=== PATIENT | female | born 1955 | race Caucasian/White ===

== ENCOUNTER 2016-10-14 08:54 | Day surgery (SDC) | payer BC ==
[~2016-10-14] VITALS: Ht 170.2 cm; Wt 78.9 kg
[~2016-10-14 08:54] MED LIST: ANTIVERT PO; BACTRIM DS1 TAB PO; BENADRYL 50MG C50 MG PO; BIOTIN MAXI10000 MCG PO; CIPROFLOXACN500 MG PO; CYCLOBENZAPR10 MG PO; CYMBALTA20 MG PO; CYMBALTA30 MG PO; CYMBALTA60 MG PO; DARVOCET N-100100 - OR; DICLOFENAC SODI50 M1 PO; DICLOFENAC50 MG PO; DICLOFENAC75 MG PO; DONEPEZIL5 MG PO; FISH OIL1000 MG PO; FLEXERIL OR; FLEXERIL PO; GRALISE300 MG PO; KEFLEX500 MG OR; LORTAB 10 PO; LORTAB 5 OR; LORTAB5 PO; MEDDOSEPAK PO; NAMENDA10 MG PO; NEURONTIN300 MG OR; NEURONTIN300 MG PO; NITROGLYCER0.4 MG SL; NITROSTAT0.4 MG SL; NORCO1 TA1 PO; PEPCID20 MG PO; PERCOCET 5/325M1 TAB OR; PRAVASTATIN SOD20 MG PO; PREMARIN0.3 MG PO; PREZISTA800 MG; PRILOSEC40 MG PO; PROVENTIL HFA IN; RYBIX ODT50 MG PO; SELENIUM200 MC1 PO; TRAMADOL HCL50 MG PO; TRAZODONE HCL100 MG PO; TRAZODONE50 MG PO; ULTRAM50 M1 PO; ULTRAM50 MG PO; XANAX XR0.5 MG PO; XANAX0.25 MG PO; XANAX0.5 MG PO; ZOFRAN ODT4 MG PO; [UNRECOGNIZED DRUG - OTHER]; [UNRECOGNIZED DRUG - OTHER] IM
[2016-10-14 11:29] VITALS: BP 110/65
[2016-10-15] MEDS ORDERED: XANAX0.5 MG PO (12:22)
== END 2016-10-14 11:40 | disposition home or self-care (01) | DRG 951 ==
LOC: ENDO 08:54
PROVIDERS: ATTEND Internal Medicine Gastroenterology
PROC: 0DBP8ZX Excision of Rectum, Via Natural or Artificial Opening Endoscopic, Diagnostic (ICD-10-PCS; principal; 2016-10-14)
PROC: 0DBN8ZX Excision of Sigmoid Colon, Via Natural or Artificial Opening Endoscopic, Diagnostic (ICD-10-PCS; 2016-10-14)
DX: Z12.11 Encounter for screening for malignant neoplasm of colon (principal); K76.0 Fatty (change of) liver, not elsewhere classified; G62.9 Polyneuropathy, unspecified; K64.4 Residual hemorrhoidal skin tags; K57.30 Diverticulosis of large intestine without perforation or abscess without bleeding; K63.5 Polyp of colon; K62.1 Rectal polyp; R11.2 Nausea with vomiting, unspecified; F41.9 Anxiety disorder, unspecified; B19.20 Unspecified viral hepatitis C without hepatic coma; Z86.010 Personal history of colon polyps

== ENCOUNTER 2016-10-15 11:34 | Emergency (ER) | payer BC ==
[~2016-10-15] VITALS: Ht 170.2 cm; Wt 79.1 kg
[2016-10-15] MEDS ORDERED: XANAX0.5 MG PO (12:22)
[2016-10-15 12:35] LABS: HEMATOCRIT 40.5 % (37.0-47.0); IMMATURE GRANULOCYTES 0.2 % (0.0-1.0); MEAN CORPUSCULAR HGB 28.6 pG CALC (26.0-32.0); MEAN CORPUSCULAR HGB CONC 32.1 g/L CALC (32.0-36.0); NEUT# 3.81 thou/uL (2.00-7.15); RED BLOOD COUNT 4.55 mill/uL (4.20-5.60); RED CELL DISTRI WIDTH 12.9 % (11.5-15.5)
[2016-10-15 12:40] LABS: ALBUMIN 4.8 g/dL (3.2-5.0); ALKALINE PHOSPHATASE 66 u/l (38-126); ANION GAP 17 (6-22 (CALC)); BILIRUBIN, TOTAL 0.7 mg/dL (0.0-1.4); BUN 15 mg/dL (7-17); BUN/CREATININE RATIO 17 (12-20 (CALC)); CALCIUM 9.9 mg/dL (8.4-10.2); CARBON DIOXIDE 27 mmol/l (22-30); CHLORIDE 105 mmol/l (95-108); CREATININE 0.9 mg/dL (0.5-1.0); GFR > 60 ML/MIN (>=60 (CALC)); GFR FOR AFR.AMER. > 60 ML/MIN (>=60 (CALC)); GLUCOSE 100 mg/dL (65-105); POTASSIUM 4.2 mmol/l (3.5-5.1); PROTHROMBIN TIME 11.1 SECONDS (9.0-12.5); SGOT/AST 31 u/l (14-36); SGPT/ALT 48 u/l (9-52); SODIUM 144 mmol/l (137-146); TOTAL PROTEIN 8.4 g/dL (6.3-8.2)
[2016-10-15 14:26] VITALS: BP 117/72
== END 2016-10-15 14:27 | DRG 379 ==
LOC: ED 11:34
PROVIDERS: Emergency Medicine
DX: K92.2 Gastrointestinal hemorrhage, unspecified (principal); R11.0 Nausea; R10.31 Right lower quadrant pain; R10.32 Left lower quadrant pain; Z98.890 Other specified postprocedural states
CPT/HCPCS: Q9967

== ENCOUNTER 2017-03-10 17:10 | Observation (INO) | payer BC, OTHER ==
[~2017-03-10] VITALS: Ht 170.2 cm; Wt 77.0 kg
[2017-03-10 18:14] LABS: HEMATOCRIT 39.2 % (37.0-47.0); HEMOGLOBIN 12.4 g/dl (12.0-16.0); IMMATURE GRANULOCYTES 0.2 % (0.0-1.0); MEAN CELL VOLUME 86.7 fL CALC (80.0-100.0); MEAN CORPUSCULAR HGB 27.4 pG CALC (26.0-32.0); MEAN CORPUSCULAR HGB CONC 31.6 g/L CALC (32.0-36.0); NEUT# 2.51 thou/uL (2.00-7.15); RED BLOOD COUNT 4.52 mill/uL (4.20-5.60)
[2017-03-10] MEDS ORDERED: NAMENDA10 MG PO (18:25)
[2017-03-10 18:27] LABS: ANION GAP 16 (6-22 (CALC)); BUN 11 mg/dL (7-17); BUN/CREATININE RATIO 14 (12-20 (CALC)); CALCIUM 10.2 mg/dL (8.4-10.2); CARBON DIOXIDE 29 mmol/l (22-30); CHLORIDE 105 mmol/l (95-108); CREATININE 0.7 mg/dL (0.5-1.0); GFR > 60 ML/MIN (>=60 (CALC)); GFR FOR AFR.AMER. > 60 ML/MIN (>=60 (CALC)); GLUCOSE 82 mg/dL (65-105); POTASSIUM 4.2 mmol/l (3.5-5.1); SODIUM 146 mmol/l (137-146)
[2017-03-10 18:46] LABS: INFLUENZA A NONE DETECTED (NONE DETECT); INFLUENZA B NONE DETECTED (NONE DETECT)
[2017-03-10 19:29] LABS: URINE BILIRUBIN - DIPSTICK NEGATIVE (NEGATIVE); URINE BLOOD DIPSTICK NEGATIVE (NEGATIVE); URINE COLOR YELLOW; URINE GLUCOSE - DIPSTICK NEGATIVE (NEGATIVE); URINE KETONE NEGATIVE (NEGATIVE); URINE LEUK ESTERASE TRACE (NEGATIVE); URINE NITRITE - DIPSTICK NEGATIVE (Negative); URINE PH 6.5 (4.5-8.0); URINE PROTEIN - DIPSTICK NEGATIVE (NEG-TRACE); URINE UROBILINOGEN - DIPSTICK 0.2 E.U./dL (0.2)
[2017-03-10 20:21] LABS: URINE CLARITY CLEAR
[2017-03-10 20:50] VITALS: BP 135/76
[2017-03-10 23:22] VITALS: BP 132/85
[2017-03-11 03:00] VITALS: BP 114/61
[2017-03-11 08:15] VITALS: BP 141/91
[2017-03-11 13:28] VITALS: BP 137/75
[2017-03-11 13:30] VITALS: BP 133/33; BP 137/75; BP 143/81
== END 2017-03-11 14:32 | disposition home or self-care (01) | DRG 312 ==
LOC: ED 17:10 → ED-I 18:37 → ED 18:55 → MS2 18:56
PROVIDERS: Family Medicine; ADMIT Internal Medicine; ATTEND Internal Medicine
DX: R55 Syncope and collapse (principal); I10 Essential (primary) hypertension; G62.9 Polyneuropathy, unspecified; M79.7 Fibromyalgia; M06.9 Rheumatoid arthritis, unspecified; G31.84 Mild cognitive impairment of uncertain or unknown etiology; K52.9 Noninfective gastroenteritis and colitis, unspecified; R10.9 Unspecified abdominal pain; G89.29 Other chronic pain; F41.0 Panic disorder [episodic paroxysmal anxiety]; M19.90 Unspecified osteoarthritis, unspecified site
CPT/HCPCS: G0378

== ENCOUNTER 2017-05-15 14:35 | Emergency (ER) | payer BC, OTHER | END 2017-05-15 14:55 | disposition left against medical advice (07) | DRG 951 | LOC: ED 14:35 → LWOBS 14:55 | DX: Z91.19 Patient's noncompliance with other medical treatment and regimen (principal) ==

== ENCOUNTER → 2018-04-05 | Outpatient (REF) | payer MEDICARE, MEDICAID ==
[~2018-04-05] MED LIST changes: +CURCUMIN 95500 MG; +DONEPEZIL HCL10 M1; +EQL ANTACID U1000 MG; +FISH OIL1000 M2
== END | disposition home or self-care (01) ==
LOC: MRI 03-02 13:00
PROVIDERS: ATTEND Orthopaedic Surgery
DX: M25.562 Pain in left knee (principal); M25.552 Pain in left hip

== ENCOUNTER → 2018-04-12 | Outpatient (REF) | payer MEDICARE, MEDICAID | END | disposition home or self-care (01) | LOC: DI 12:30 | PROVIDERS: ATTEND Orthopaedic Surgery | DX: M25.512 Pain in left shoulder (principal); M25.572 Pain in left ankle and joints of left foot ==

== ENCOUNTER 2018-08-15 08:22 | Day surgery (SDC) | payer MEDICARE, MEDICAID ==
[2018-08-15 10:31] VITALS: BP 112/75
== END 2018-08-15 10:45 | disposition home or self-care (01) ==
LOC: ORM 08:22
PROVIDERS: ATTEND Anesthesiology Pain Medicine
PROC: 3E0T3TZ Introduction of Destructive Agent into Peripheral Nerves and Plexi, Percutaneous Approach (ICD-10-PCS; principal; 2018-08-15)
PROC: BR161ZZ Fluoroscopy of Lumbar Facet Joint(s) using Low Osmolar Contrast (ICD-10-PCS; 2018-08-15)
DX: M54.5 Low back pain (principal); M47.816 Spondylosis without myelopathy or radiculopathy, lumbar region

== ENCOUNTER 2018-08-29 07:20 | Day surgery (SDC) | payer MEDICARE, MEDICAID ==
[~2018-08-29] VITALS: Ht 170.2 cm; Wt 81.6 kg
[2018-08-29] MEDS ORDERED: TRAMADOL HCL50 MG PO (09:41)
[2018-08-29 09:43] VITALS: BP 129/83
== END 2018-08-29 09:46 | disposition home or self-care (01) ==
LOC: ORM 07:20
PROVIDERS: ATTEND Anesthesiology Pain Medicine
PROC: 3E0T3TZ Introduction of Destructive Agent into Peripheral Nerves and Plexi, Percutaneous Approach (ICD-10-PCS; principal; 2018-08-29)
PROC: BR161ZZ Fluoroscopy of Lumbar Facet Joint(s) using Low Osmolar Contrast (ICD-10-PCS; 2018-08-29)
DX: M54.5 Low back pain (principal); M47.816 Spondylosis without myelopathy or radiculopathy, lumbar region

== ENCOUNTER 2019-03-16 | Emergency (ER) | payer MEDICARE, MEDICAID ==
[2019-03-16] MEDS ORDERED: FLEXERIL PO ×2 (08:07→08:52)
[2019-03-16] MEDS ORDERED: MEDDOSEPAK PO ×2 (08:07→08:52)
== END 2019-03-16 09:00 | disposition home or self-care (01) ==
DX: M54.42 Lumbago with sciatica, left side (principal); I10 Essential (primary) hypertension; F03.90 Unspecified dementia, unspecified severity, without behavioral disturbance, psychotic disturbance, mood disturbance, and anxiety; M79.7 Fibromyalgia; M06.9 Rheumatoid arthritis, unspecified; G62.9 Polyneuropathy, unspecified

== ENCOUNTER 2020-02-25 20:09 | Emergency (ER) | payer MEDICARE, MEDICAID | END 2020-02-25 20:40 | disposition left against medical advice (07) | LOC: ED 20:09 → LWOBS 20:40 → ED 20:40 | DX: Z91.19 Patient's noncompliance with other medical treatment and regimen (principal) ==

== ENCOUNTER 2020-04-21 17:18 | Emergency (ER) | payer MEDICARE, MEDICAID ==
[~2020-04-21] VITALS: Ht 170.2 cm; Wt 70.0 kg
[2020-04-21 18:33] LABS: IMMATURE GRANULOCYTES 0.5 % (0.0-5.0); MEAN CELL VOLUME 90.4 fL CALC (80.0-100.0); MEAN CORPUSCULAR HGB 27.8 pG CALC (26.0-32.0); MEAN CORPUSCULAR HGB CONC 30.7 g/dL CAL (32.0-36.0); NEUT# 5.38 thou/uL (2.00-7.15); RED BLOOD COUNT 3.35 mill/uL (4.20-5.60); RED CELL DISTRI WIDTH 14.1 % (11.5-15.5)
[2020-04-21 18:35] LABS: HEMATOCRIT 30.3 % (37.0-47.0); HEMOGLOBIN 9.3 g/dl (12.0-16.0)
[2020-04-21 18:46] LABS: ANION GAP 13 (6-22 (CALC)); BUN 13 mg/dL (8-23); BUN/CREATININE RATIO 16 (12-20 (CALC)); CARBON DIOXIDE 29 mmol/l (22-30); CHLORIDE 98 mmol/l (95-108); CREATININE 0.9 mg/dL (0.5-1.0); GFR > 60 ML/MIN (>=60 (CALC)); GFR FOR AFR.AMER. > 60 ML/MIN (>=60 (CALC)); SODIUM 137 mmol/l (137-146)
[2020-04-21 18:48] LABS: POTASSIUM 2.9 mmol/l (3.5-5.1)
[2020-04-21 20:43] VITALS: BP 117/65
== END 2020-04-21 21:55 | disposition left against medical advice (07) ==
LOC: ED 17:18
PROVIDERS: Family Medicine
DX: T84.59XA Infection and inflammatory reaction due to other internal joint prosthesis, initial encounter (principal); M00.9 Pyogenic arthritis, unspecified; I10 Essential (primary) hypertension; M06.9 Rheumatoid arthritis, unspecified; M79.7 Fibromyalgia; G62.9 Polyneuropathy, unspecified; F03.90 Unspecified dementia, unspecified severity, without behavioral disturbance, psychotic disturbance, mood disturbance, and anxiety; Y83.1 Surgical operation with implant of artificial internal device as the cause of abnormal reaction of the patient, or of later complication, without mention of misadventure at the time of the procedure; Z91.19 Patient's noncompliance with other medical treatment and regimen
CPT/HCPCS: Q9967

== ENCOUNTER 2020-05-22 | Emergency (ER) | payer MEDICARE, MEDICAID ==
[~2020-05-22] MED LIST changes: -TRAZODONE HCL100 MG PO
[2020-07-29] MEDS ORDERED: ARTIFIC TEAR OU (11:51)
[2020-07-29] MEDS ORDERED: ALLEGRA ALLERGY60 MG PO (11:51)
[2020-07-29] MEDS ORDERED: VIT C/VIT E PO (11:52)
[2020-07-29] MEDS ORDERED: VIT A & D PO (11:52)
[2020-07-29] MEDS ORDERED: FERROUS SULF325 M3 PO (11:52)
[2020-07-29] MEDS ORDERED: LOSARTAN POTASS50 MG PO (11:52)
[2020-09-03] MEDS ORDERED: MULTI VIT PO (10:50)
== END 2020-05-22 18:50 | disposition home or self-care (01) ==
DX: T81.40XA Infection following a procedure, unspecified, initial encounter (principal); B95.8 Unspecified staphylococcus as the cause of diseases classified elsewhere; I10 Essential (primary) hypertension; M06.9 Rheumatoid arthritis, unspecified; M79.7 Fibromyalgia; F03.90 Unspecified dementia, unspecified severity, without behavioral disturbance, psychotic disturbance, mood disturbance, and anxiety; G62.9 Polyneuropathy, unspecified; Y83.9 Surgical procedure, unspecified as the cause of abnormal reaction of the patient, or of later complication, without mention of misadventure at the time of the procedure

== ENCOUNTER 2020-07-28 14:31 | Emergency (ER) | payer MEDICARE, MEDICAID ==
[~2020-07-28] VITALS: Ht 170.2 cm; Wt 65.9 kg
[2020-07-28 14:43] VITALS: BP 130/74
[2020-07-29] MEDS ORDERED: ARTIFIC TEAR OU (11:51)
[2020-07-29] MEDS ORDERED: ALLEGRA ALLERGY60 MG PO (11:51)
[2020-07-29] MEDS ORDERED: VIT A & D PO (11:52)
[2020-07-29] MEDS ORDERED: VIT C/VIT E PO (11:52)
[2020-07-29] MEDS ORDERED: FERROUS SULF325 M3 PO (11:52)
[2020-07-29] MEDS ORDERED: LOSARTAN POTASS50 MG PO (11:52)
[2020-09-03] MEDS ORDERED: MULTI VIT PO (10:50)
== END 2020-07-28 15:30 | disposition home or self-care (01) ==
LOC: ED 14:31
DX: S90.112A Contusion of left great toe without damage to nail, initial encounter (principal); I10 Essential (primary) hypertension; W20.8XXA Other cause of strike by thrown, projected or falling object, initial encounter; Y93.G3 Activity, cooking and baking; Y92.000 Kitchen of unspecified non-institutional (private) residence as the place of occurrence of the external cause

== ENCOUNTER 2020-09-10 08:56 | Day surgery (SDC) | payer MEDICARE, MEDICAID ==
[~2020-09-10] VITALS: Ht 170.2 cm; Wt 68.0 kg
[~2020-09-10 08:56] MED LIST changes: +ALLEGRA ALLERGY60 MG PO; +ARTIFIC TEAR OU; +FERROUS SULF325 M3 PO; +LOSARTAN POTASS50 MG PO; +MULTI VIT PO; +VIT A & D PO; +VIT C/VIT E PO
[2020-09-10 13:13] VITALS: BP 117/61
== END 2020-09-10 13:05 | disposition home or self-care (01) ==
LOC: ENDO 08:56
PROVIDERS: ATTEND Surgery
PROC: 0DBH8ZX Excision of Cecum, Via Natural or Artificial Opening Endoscopic, Diagnostic (ICD-10-PCS; principal; 2020-09-10)
DX: Z12.11 Encounter for screening for malignant neoplasm of colon (principal); D12.0 Benign neoplasm of cecum; K57.30 Diverticulosis of large intestine without perforation or abscess without bleeding; I10 Essential (primary) hypertension; Z86.010 Personal history of colon polyps

== ENCOUNTER 2020-09-27 09:46 | Emergency (ER) | payer MEDICARE, MEDICAID ==
[2020-09-27] MEDS ORDERED: ALPRAZOLAM0.5 M2 PO (10:22)
[2020-09-27] MEDS ORDERED: DONEPEZIL10 MG PO (10:23)
[2020-09-27] MEDS ORDERED: NEURONTIN300 MG PO (10:23)
[2020-09-27] MEDS ORDERED: TRAZODONE100 MG PO (10:24)
[2020-09-27 10:45] VITALS: BP 128/68
== END 2020-09-27 10:45 | disposition home or self-care (01) ==
LOC: ED 09:46
DX: Z20.822 Contact with and (suspected) exposure to COVID-19 (principal); J44.9 Chronic obstructive pulmonary disease, unspecified; F41.9 Anxiety disorder, unspecified; M06.9 Rheumatoid arthritis, unspecified; F32.9 Major depressive disorder, single episode, unspecified

== ENCOUNTER 2021-01-04 13:02 | Emergency (ER) | payer MEDICARE, MEDICAID ==
[~2021-01-04] VITALS: Ht 170.2 cm; Wt 54.0 kg
[~2021-01-04 13:02] MED LIST changes: +ALPRAZOLAM0.5 M2 PO; +DONEPEZIL10 MG PO; +TRAZODONE100 MG PO
[2021-01-04 15:21] LABS: HEMATOCRIT 40.4 % (37.0-47.0); HEMOGLOBIN 12.6 g/dl (12.0-16.0); IMMATURE GRANULOCYTES 0.2 % (0.0-5.0); MEAN CORPUSCULAR HGB 28.4 pG CALC (26.0-32.0); MEAN CORPUSCULAR HGB CONC 31.2 g/dL CAL (32.0-36.0); NEUT# 2.92 thou/uL (2.00-7.15); RED BLOOD COUNT 4.44 mill/uL (4.20-5.60); RED CELL DISTRI WIDTH 12.9 % (11.5-15.5)
[2021-01-04 15:23] LABS: URINE BILIRUBIN - DIPSTICK NEGATIVE (NEGATIVE); URINE BLOOD DIPSTICK NEGATIVE (NEGATIVE); URINE COLOR YELLOW; URINE GLUCOSE - DIPSTICK NEGATIVE (NEGATIVE); URINE KETONE NEGATIVE (NEGATIVE); URINE LEUK ESTERASE NEGATIVE (NEGATIVE); URINE PROTEIN - DIPSTICK NEGATIVE (NEG-TRACE); URINE SPECIFIC GRAVITY 1.025; URINE UROBILINOGEN - DIPSTICK 0.2 E.U./dL (0.2)
[2021-01-04 15:24] LABS: URINE NITRITE - DIPSTICK NEGATIVE (Negative)
[2021-01-04 15:34] LABS: ALBUMIN 4.7 g/dL (3.2-5.0); ALKALINE PHOSPHATASE 79 u/l (38-126); ANION GAP 11 (6-22 (CALC)); BILIRUBIN, TOTAL 0.5 mg/dL (0.0-1.4); BUN 13 mg/dL (8-23); BUN/CREATININE RATIO 15 (12-20 (CALC)); CARBON DIOXIDE 33 mmol/l (22-30); CHLORIDE 101 mmol/l (95-108); CREATININE 0.8 mg/dL (0.5-1.0); GFR > 60 ML/MIN (>=60 (CALC)); GFR FOR AFR.AMER. > 60 ML/MIN (>=60 (CALC)); LIPASE 75 u/l (23-300); SGOT/AST 24 u/l (9-36); SODIUM 140 mmol/l (137-146); TOTAL PROTEIN 8.5 g/dL (6.3-8.2)
[2021-01-04] MEDS ORDERED: HYOSCYAMINE0.125 M3 PO (17:35)
[2021-01-04 17:51] VITALS: BP 169/79
== END 2021-01-04 19:00 | disposition home or self-care (01) ==
LOC: ED 13:02
PROVIDERS: Family Medicine
DX: R10.84 Generalized abdominal pain (principal); M54.9 Dorsalgia, unspecified; I10 Essential (primary) hypertension; F41.9 Anxiety disorder, unspecified; M06.9 Rheumatoid arthritis, unspecified; F32.A Depression, unspecified
CPT/HCPCS: Q9967

== ENCOUNTER 2021-10-26 06:09 | Emergency (ER) | payer MEDICARE, MEDICAID ==
[~2021-10-26] VITALS: Ht 170.2 cm; Wt 60.0 kg
[2021-10-26] VITALS (9 sets, daily range): BP systolic 116–167; BP diastolic 57–147
[~2021-10-26 06:09] MED LIST changes: +HYOSCYAMINE0.125 M3 PO
[2021-10-26] MEDS ORDERED: TRAMADOL HYDROC50 M1 PO (13:21)
== END 2021-10-26 08:52 | disposition home or self-care (01) ==
LOC: ED 06:09
DX: S52.592A Other fractures of lower end of left radius, initial encounter for closed fracture (principal); W17.89XA Other fall from one level to another, initial encounter; Y92.012 Bathroom of single-family (private) house as the place of occurrence of the external cause; M54.50 Low back pain, unspecified; S09.90XA Unspecified injury of head, initial encounter

== ENCOUNTER 2021-11-09 19:20 | Emergency (ER) | payer MEDICARE, MEDICAID ==
[~2021-11-09] VITALS: Ht 170.2 cm; Wt 58.6 kg
[~2021-11-09 19:20] MED LIST changes: +TRAMADOL HYDROC50 M1 PO
[2021-11-09 20:14] VITALS: BP 161/95
[2021-11-09 21:09] VITALS: BP 161/95
== END 2021-11-09 21:12 | disposition home or self-care (01) ==
LOC: ED 19:20
PROC: 2W3DX1Z Immobilization of Left Lower Arm using Splint (ICD-10-PCS; principal; 2021-11-09)
DX: S52.502D Unspecified fracture of the lower end of left radius, subsequent encounter for closed fracture with routine healing (principal); X58.XXXD Exposure to other specified factors, subsequent encounter; F41.9 Anxiety disorder, unspecified; M06.9 Rheumatoid arthritis, unspecified; M79.7 Fibromyalgia; F32.A Depression, unspecified

== ENCOUNTER 2022-03-14 14:23 | Emergency (ER) | payer MEDICARE, MEDICAID ==
[~2022-03-14] VITALS: Ht 170.2 cm; Wt 57.0 kg
[2022-03-14 16:23] LABS: BASO% 0.2 % (0-3); EOS% 1.5 % (0-8); HEMOGLOBIN 10.7 g/dl (12.0-16.0); IMMATURE GRANULOCYTES 0.2 % (0.0-5.0); LYMPH% 21.1 % (15-41); MEAN CELL VOLUME 90.2 fL CALC (80.0-100.0); MEAN CORPUSCULAR HGB CONC 32.1 g/dL CAL (32.0-36.0); MONO% 11.4 % (2-13); NEUT# 3.92 thou/uL (2.00-7.15); NEUT% 65.6 % (42-76); RED BLOOD COUNT 3.69 mill/uL (4.20-5.60); RED CELL DISTRI WIDTH 12.8 % (11.5-15.5)
[2022-03-14 16:30] LABS: HEMATOCRIT 33.3 % (37.0-47.0)
[2022-03-14 16:36] LABS: ALBUMIN 4.6 g/dL (3.2-5.0); ALKALINE PHOSPHATASE 81 u/l (38-126); BUN 22 mg/dL (8-23); BUN/CREATININE RATIO 27 (12-20 (CALC)); CARBON DIOXIDE 31 mmol/l (22-30); CHLORIDE 104 mmol/l (95-108); CREATININE 0.8 mg/dL (0.5-1.0); ETHYL ALCOHOL 0 mg/dl (0-30); GFR FOR AFR.AMER. > 60 ML/MIN (>=60 (CALC)); GFR OTHER RACES > 60 ML/MIN (>=60 (CALC)); SGOT/AST 32 u/l (9-36); SODIUM 139 mmol/l (137-146); TOTAL PROTEIN 7.9 g/dL (6.3-8.2)
[2022-03-14 16:42] LABS: ANION GAP 7 (6-22 (CALC)); BILIRUBIN, TOTAL 0.4 mg/dL (0.0-1.4); POTASSIUM 3.4 mmol/l (3.5-5.1)
[2022-03-14 17:10] LABS: URINE BILIRUBIN - DIPSTICK NEGATIVE (NEGATIVE); URINE BLOOD DIPSTICK TRACE-INTACT (NEGATIVE); URINE COLOR YELLOW; URINE GLUCOSE - DIPSTICK NEGATIVE (NEGATIVE); URINE KETONE NEGATIVE (NEGATIVE); URINE LEUK ESTERASE NEGATIVE (NEGATIVE); URINE PH 5.5 (4.5-8.0); URINE PROTEIN - DIPSTICK 30 mg/dL (NEG-TRACE); URINE SPECIFIC GRAVITY >=1.030; URINE UROBILINOGEN - DIPSTICK 0.2 E.U./dL (0.2)
[2022-03-14 17:14] LABS: URINE NITRITE - DIPSTICK NEGATIVE (Negative); URINE RBC 0-2 RBC/hpf (0-5); URINE SQUAMOUS EPITHELIAL CELL FEW EPI/hpf (0-FEW); URINE WBC 0-2 WBC/hpf (0-5)
[2022-03-14] MEDS ORDERED: NAPROXEN500 MG PO (18:27)
[2022-03-14] MEDS ORDERED: METHOCARBAMOL500 MG PO (18:27)
[2022-03-14] MEDS ORDERED: PROAIR HFA IN (18:32)
[2022-03-14 18:36] VITALS: BP 127/58
== END 2022-03-14 18:58 | disposition home or self-care (01) ==
LOC: ED 14:23
PROVIDERS: Nurse Practitioner
DX: S20.211A Contusion of right front wall of thorax, initial encounter (principal); M06.9 Rheumatoid arthritis, unspecified; F32.A Depression, unspecified; W01.198A Fall on same level from slipping, tripping and stumbling with subsequent striking against other object, initial encounter; Y92.009 Unspecified place in unspecified non-institutional (private) residence as the place of occurrence of the external cause
CPT/HCPCS: Q9967

== ENCOUNTER 2023-09-24 13:36 | Emergency (ER) | payer MEDICARE, MEDICAID ==
[~2023-09-24] VITALS: Ht 170.2 cm; Wt 53.0 kg
[~2023-09-24 13:36] MED LIST changes: +METHOCARBAMOL500 MG PO; +NAPROXEN500 MG PO; +PROAIR HFA IN; +VIBRAMYCIN100 M2 PO; +VOLTAREN - GENE75 MG PO
[2023-09-24 14:24] VITALS: BP 158/89
[2023-09-24 14:30] VITALS: BP 147/78
[2023-09-24 15:15] VITALS: BP 143/79
[2023-09-24 15:27] LABS: BASO% 0.3 % (0-3); EOS% 2.2 % (0-8); HEMATOCRIT 37.1 % (37.0-47.0); HEMOGLOBIN 11.5 g/dl (12.0-16.0); IMMATURE GRANULOCYTES 0.2 % (0.0-5.0); LYMPH% 27.3 % (15-41); MEAN CELL VOLUME 87.7 fL CALC (80.0-100.0); MEAN CORPUSCULAR HGB 27.2 pG CALC (26.0-32.0); MONO% 11.9 % (2-13); NEUT# 3.42 thou/uL (2.00-7.15); NEUT% 58.1 % (42-76); RED BLOOD COUNT 4.23 mill/uL (4.20-5.60); RED CELL DISTRI WIDTH 14.7 % (11.5-15.5)
[2023-09-24 15:41] LABS: ALBUMIN 4.8 g/dL (3.2-5.0); BILIRUBIN, TOTAL 0.4 mg/dL (0.02-1.3); CREATININE 0.8 mg/dL (0.5-1.0); POTASSIUM 3.9 mmol/l (3.5-5.1); TOTAL PROTEIN 8.1 g/dL (6.3-8.2)
[2023-09-24 15:42] VITALS: BP 143/79
[2023-09-24 16:27] LABS: URINE BILIRUBIN - DIPSTICK Negative (NEGATIVE); URINE BLOOD DIPSTICK Negative (NEGATIVE); URINE GLUCOSE - DIPSTICK Negative (NEGATIVE); URINE KETONE Negative (NEGATIVE); URINE LEUK ESTERASE Negative (NEGATIVE); URINE NITRITE - DIPSTICK Negative (Negative); URINE PROTEIN - DIPSTICK 30 mg/dL (NEG-TRACE); URINE SPECIFIC GRAVITY >=1.030; URINE UROBILINOGEN - DIPSTICK 0.2 E.U./dL (0.2)
[2023-09-24 16:31] LABS: URINE COLOR Yellow
[2023-09-24 16:37] LABS: URINE RBC 0-2 RBC/hpf (0-5); URINE SQUAMOUS EPITHELIAL CELL RARE EPI/hpf (0-FEW)
== END 2023-09-24 15:46 | disposition left against medical advice (07) ==
LOC: ED 13:36
PROVIDERS: Nurse Practitioner Family
DX: T18.9XXA Foreign body of alimentary tract, part unspecified, initial encounter (principal); M54.2 Cervicalgia; F41.9 Anxiety disorder, unspecified; M06.9 Rheumatoid arthritis, unspecified; F32.A Depression, unspecified; M79.7 Fibromyalgia; W44.C0XA Glass unspecified, entering into or through a natural orifice, initial encounter; W18.30XA Fall on same level, unspecified, initial encounter; Z53.29 Procedure and treatment not carried out because of patient's decision for other reasons